=== PATIENT | female | born 1985 | race Caucasian/White ===

== ENCOUNTER 2016-11-29 11:02 | Emergency (ER) | payer OTHER ==
[~2016-11-29] VITALS: Ht 160 cm; Wt 92.1 kg
[2016-11-29 13:07] LABS: HEMATOCRIT 38.8 % (36.0-46.0); MCHC 32.2 G/DL (30.0-36.0); MCV 83.8 FL (83-99); MEAN PLAT.VOLUME 9.9 uM^3 (9.5-12.4); PLATELET COUNT 275 K/uL (156-360); RBC DIS.WIDTH-CV 13.8 % (11.8-14.6); RED BLOOD COUNT 4.63 M/uL (3.80-5.20); WHITE BLOOD COUNT 7.7 K/uL (4.1-10.2)
[2016-11-29 13:23] LABS: CHLORIDE 109 mEq/L (99-109); POTASSIUM 3.9 mEq/L (3.7-5.4); SODIUM 140 mEq/L (136-147)
[2016-11-29 13:24] LABS: GLUCOSE 78 mg/dL (70-99)
[2016-11-29 13:26] LABS: ANION GAP 8 MEQ/L (2-14)
[2016-11-29 13:28] LABS: GFR ESTIMATE (CALCULATED) > 59 mL/min/
[2016-11-29 13:29] LABS: UREA NITROGEN (BUN) 12 mg/dL (9-23)
[2016-11-29 13:37] LABS: QUANTITATIVE HCG < 4.0 MIU/ML
[2016-11-29 14:02] LABS: ADD MIUA? YES; BILIRUBIN NEGATIVE; BLOOD NEGATIVE; COLOR YELLOW ((YELLOW)); GLUCOSE (STRIP) NEGATIVE; KETONES NEGATIVE; LEUKOCYTES NEGATIVE; NITRITE NEGATIVE; PROTEIN (STRIP) 30; UROBILINOGEN 0.2 MG/DL (0.2-1.0)
[2016-11-29 14:16] LABS: BACTERIA 1+ /HPF; EPITHELIAL CELLS 1+ /HPF; MUCUS 4+ /LPF; RED BLOOD CELLS 0-5 /HPF (0-5); UCUL ADDED? NO; WHITE BLOOD CELLS 0-5 /HPF (0-5)
[2016-11-29] MEDS ORDERED: NEURONTIN100 MG PO (15:24)
[2016-11-29 15:42] VITALS: BP 119/75
== END 2016-11-29 15:44 | disposition home or self-care (01) ==
LOC: EME 11:02
PROVIDERS: Emergency Medicine
DX: R10.2 Pelvic and perineal pain (principal); G89.4 Chronic pain syndrome
CPT/HCPCS: 76856; 80048; 81003; 84702; 85027; 99281; 99284